=== PATIENT | female | born 1970 ===

== ENCOUNTER 2021-02-27 18:18 | Emergency (ER) | payer OTHER, SELFPAY ==
--- NOTE | ~2021-02-27 | XR_ITS ---
EXAMINATION: XR LUMBOSACRAL SPINE CLINICAL INFORMATION: Lower back pain and sciatica COMPARISON: CT abdomen pelvis 11/17/2007 TECHNIQUE: Three views of the lumbosacral spine. FINDINGS: Mild degenerative changes are present in the lumbar spine with some mild endplate osteophytes. There is mild disc space narrowing at L3-L4 and L5-S1. No bony destructive lesions are seen XR/XR lumbar spine 2-3V IMPRESSION: Mild degenerative changes without acute process.
[2021-02-27 18:40] VITALS: BP 124/65; PULSE 92; RESP 17; TEMP 36.6; O2SAT 100; BMI 44.9
[2021-02-27] MEDS: Ibuprofen 600 MG TABLET PO (19:25)
--- NOTE | 2021-02-27 19:25 | PC.NURSE ---
patient medicated with motrin for pain
[2021-02-27] MEDS: Lidocaine 4 % Patch ADH..PATCH 2 PATCH TRANSDERMA (20:49)
[2021-02-27] MEDS: Cyclobenzaprine HCl 10 MG TABLET PO (20:49)
[2021-02-27] MEDS: Ketorolac Tromethamine 60 MG/2 ML VIAL IM (20:56)
--- NOTE | 2021-02-27 21:01 | ED_ITS ---
HPI - General Adult General Chief complaint: General Medical Stated complaint: Leg pain Time Seen by Provider: 02/27/21 20:21 Source: patient Mode of arrival: ambulatory Limitations: no limitations History of Present Illness HPI narrative: 51-year-old female with chronic back pain presents with lower back pain and right leg sciatica. 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 She does not describe any trauma or any other injury. Denies symptoms indicating cauda equina, chest pain or pressure, palpitations, shortness of breath, abdominal pain, abdominal distention, dysu sunny, hematuria, edema, and any other concerning symptoms. Onset (ago): day(s) (Several) Location: back, right and lower extremity Severity: moderate Severity scale (1-10): 7 Quality: aching and constant Pain Consistency: constant Relieving factors: none Exacerbating factors: movement Associated symptoms: denies other symptoms Treatments prior to arrival: NSAID and heat therapy Related Data Previous Rx's Medication Instructions Recorded naproxen 500 mg tablet 500 mg PO Q12H PRN #60 tab 11/08/20 cyclobenzaprine 10 mg PO TID PRN #20 tab 02/27/21 lidocaine [Lidoderm] 2 patch TOPICAL DAILY PRN #30 ea 02/27/21 Allergies Allergy/AdvReac Type Severity Reaction Status Date / Time acetaminophen [From PERCOCET] Allergy Unknown RASH Unverified 08/05/20 15:13 oxycodone [Percocet] Allergy Unknown Verified 05/05/16 00:00 From PERCOCET Allergy Unknown RASH Uncoded 08/05/20 15:13 Review of Systems Review of Systems: Constitutional: No Fever, No Chills ENT/Mouth: No Ear Pain, No Hoarseness, No sore throat Eyes: No Eye Pain, No Swelling, No Redness, No Foreign Body Cardiovascular: No Chest Pain, No SOB Respiratory: No Cough, No Dyspnea Gastrointestinal: No Nausea, No Vomiting, No Diarrhea, No abdominal Pain Genitourinary: No Dysuria, No Hematuria Musculoskeletal: positive lower back pain with sciatica to the right leg, No Myalgias, No Joint Swelling Skin: No Skin lacerations, No rash Neuro: No Weakness, No Numbness, No Paresthesias, No Loss of Consciousness, No Dizziness, No Headache Psych: No Anxiety/Panic, No Depression Heme/Lymph: no easy bruising, no Lymphadenopathy Endocrine: No Polyuria, No Polydipsia Yes all other systems are reviewed and are negative [facility] Past Medical History Attestation statement: The following information was validated with the patient. Source: old records reviewed Medical History No active medical problems Social History Social History Smoking Status: Current every day smoker Use of substances other than those prescribed or required for medical reasons: No Any prior treatment program specific to substance use: No Advance Directives: No Advance Directives Information Provided: No Physical Exam Vital Signs: Vital Signs: Last Vital Signs Temp 97.9 F 02/27/21 18:40 Pulse 92 02/27/21 18:40 Resp 17 02/27/21 18:40 BP 124/65 02/27/21 18:40 Pulse Ox 100 02/27/21 18:40 Body Mass Index 44.9 Appearance: Alert. Oriented X3. No acute distress. Eyes: Pupils equal, round and reactive to light. ENT: Pharynx normal. Neck: Normal inspection. Neck supple. CVS: Normal heart rate and rhythm. Pulses normal. Respiratory: No respiratory distress. Breath sounds normal. Abdomen: Soft and nontender. Skin: Skin warm and dry. Normal skin color. Normal skin turgor. Extremities: No lower extremity edema. Neuro: No motor deficit. No sensory deficit. 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 Plan of care is for x-ray, Lidoderm patches, Toradol injection and cyclobenzaprine. X-rays negative for acute findings requiring emergent intervention. Shows chronic degenerative disc changes. Plan of care is for patient to follow-up with pain management, physical will prescribe cyclobenzaprine and lidocaine patches. Patient verbalized understanding of and agrees plan of care discharge home. Medical Decision Making Differential Diagnosis Differential Diagnosis: Disc degeneration, lower back sprain, sciatica Medical Records Medical records reviewed: Yes I reviewed the patient's medical records. Imaging Data Lumbar x-ray: Attestation: I personally reviewed and interpreted this imaging study as follows: Radiologist's impression: EXAMINATION: XR LUMBOSACRAL SPINE CLINICAL INFORMATION: Lower back pain and sciatica COMPARISON: CT abdomen pelvis 11/17/2007 TECHNIQUE: Three views of the lumbosacral spine. FINDINGS: Mild degenerative changes are present in the lumbar spine with some mild endplate osteophytes. There is mild disc space narrowing at L3-L4 and L5-S1. No bony destructive lesions are seen XR/XR lumbar spine 2-3V IMPRESSION: Mild degenerative changes without acute process. Discharge Plan Discharge Clinical Impression: Lower back pain, Sciatica, Degenerative disc disease Patient Disposition: Home, Self-Care Instructions: Sciatica (ED), Lumbar Radiculopathy (ED), Back Pain (ED), Degenerative Disc Disease (ED) Additional Instructions: You were evaluated for lower back pain and sciatica. X-rays are negative for acute findings requiring emergent intervention. Please consider following up with Dr. Booth for pain management and physical therapy. Please use cyclobenzaprine as needed for muscle spasms. This medication will not take away your pain, it will prevent muscles from pulling on the spine and reduce spasming. This medication is a muscle relaxer, and can increase risk for drowsiness, falls, and delay coordination. Do not drive or operate machinery while taking this medication. Thank you for choosing this emergency department for evaluation. Please follow-up with primary care physician as needed. Return to the emergency department for any new, concerning, or worsening symptoms. Prescriptions: New cyclobenzaprine 10 mg tablet 10 mg PO TID PRN (Reason: muscle spasm) Qty: 20 RF: 0 lidocaine [Lidoderm] 5 % adhesive patch,medicated 2 patch topical DAILY PRN (Reason: pain) Qty: 30 RF: 0 No Action naproxen 500 mg tablet 500 mg PO Q12H PRN (Reason: for pain) Qty: 60 RF: 1 Referrals: Horace Booth MD [Physician] - 2 days Interventions: ED Discharge Assessment Last Done: 02/27/21 21:44 Discharge Date/Time: 02/27/21 21:45
== END 2021-02-27 21:45 | disposition home or self-care (01) ==
PROVIDERS: Emergency Provider Emergency Medicine
DX: M51.36 Other intervertebral disc degeneration, lumbar region (principal); M51.16 Intervertebral disc disorders with radiculopathy, lumbar region
CPT/HCPCS: 72100; 96372; 99284; J1885

== ENCOUNTER 2021-03-01 12:16 | Outpatient (REF) | payer OTHER, SELFPAY ==
[2021-03-01 13:33] LABS: MANUAL DIFF FLAG NO
[2021-03-01 13:42] LABS: Basophils Percent Auto 0.2 % (0-2); Eosinophils Absolute Auto 0.1 X10*3/uL (0.0-0.4); Eosinophils Percent Auto 1.2 % (0-4); Hematocrit 38.6 % (37-47); Hemoglobin 12.3 g/dl (12.0-16.0); Imm Gran Abs Auto 0.03 X10*3/uL (0.00-0.03); Imm Gran Pct Auto 0.3 % (0.0-0.4); Lymphocytes Absolute Auto 2.3 X10*3/uL (1.2-4.9); Lymphocytes Percent Auto 21.5 % (20-40); Mean Corpuscular HGB Conc 31.9 g/dl (31.0-35.0); Mean Corpuscular Hemoglobin 28.7 pg (27.0-33.0); Mean Platelet Volume 12.3 fL (9.4-12.3); Monocytes Absolute Auto 0.9 X10*3/uL (0.1-1.2); Monocytes Percent Auto 8.3 % (2-11); Neutrophils Absolute Auto 7.2 X10*3/uL (2.0-8.3); Neutrophils Percent Auto 68.5 % (45-73); Platelet Count 187 X10*3/uL (160-400); Red Blood Count 4.29 X10*6/uL (4.20-5.50); Red Cell Distribution Width 15.8 % (11.0-16.0); White Blood Count 10.6 X10*3/uL (4.8-10.8)
[2021-03-01 14:30] LABS: Erythrocyte Sedimentation Rate 40 MM/HR (0-20)
[2021-03-02 15:11] LABS: CRP High Sensitivity >10.0 mg/L
== END 2021-03-01 12:17 | disposition home or self-care (01) ==
LOC: HO.WFDLDS 12:16
PROVIDERS: PCP Family Medicine; Visit Provider Family Medicine
DX: M25.50 Pain in unspecified joint (principal)
CPT/HCPCS: 36415; 85025; 85652; 86141

== ENCOUNTER 2021-03-17 15:43 | Outpatient (RCR) | payer OTHER, SELFPAY ==
--- NOTE | 2021-03-17 18:46 | MHC.PT.EP ---
[facility] [place] Office [place] Office [place] Office [address] Vincent Purcell [address] [phone] F: [phone] F: [phone] F: [phone] F: [phone] Physical Therapy Plan of Care Date of Evaluation: Date of Surgery: Diagnosis: unspecified dorsalgia Assessment: Pt is a 51 y/o female referred to PT for dorsalgia who presents with signs and Sx consistent with lumbopelvic dysfunction resulting in decreased tolerance and ability to perform walking for long distances, standing and sitting tasks for long duration as well as lifting objects of weight, rolling in bed, and disturbed sleep secondary to decreased hip and core strength, decreased trunk ROM as well as, lumbar instability, decreased posture, increased tissue tension, pelvic asymmetry and pain. Pt is deemed an appropriate candidate to receive skilled PT in order to address her physical limitations to improve her functional ability. Frequency and Duration: The patient will be seen 2x/wk x 6 wks. Short Term Goals: In 1 week:; initiate HEP with evidence of compliance. In 3 weeks: improve baseline pain to < 6/10; initial 8/10. Vp Medical Goals: In 5 weeks: I with HEP. In 5 weeks: improve core strength to > good; initial good (-). In 5 weeks: Pt will reports < 1/4 night's sleep disturbed d/t lumbar pain. Treatment Plan: Modalities to reduce pain, spasms and effusion. Manual therapy to restore motion and function. Therapeutic exercise to improve strength and flexibility. Neuromuscular re-education for posture and balance. Therapeutic activities to return to functional activities of daily living. Electronically signed by: Christian Antoine PT. Please sign and return to therapist. Thank you for your referral.
--- NOTE | 2021-07-19 18:29 | MHC.PT.DC ---
[facility] [place] Office [place] Office [place] Office [address] Vincent Purcell 140 [facility] [phone] F: [phone] F: [phone] F: [phone] F: [phone] Physical Therapy Discharge Report Diagnosis: unspecified dorsalgia Date of Surgery: Date of Evaluation: 03/17/21 Date of Discharge: 07/19/21 Treatments to Date: 1 Cancellations to Date: 0 No Shows to Date: 2 Discharge Status: Visit Non-compliance Discharge Summary: Electronically signed by: Christian Antoine PT. Please sign and return to therapist. Thank you for your referral.
== END 2021-07-19 18:30 | disposition home or self-care (01) ==
LOC: HO.PTCHIC 15:43
PROVIDERS: PCP Family Medicine; Visit Provider Family Medicine
DX: M54.9 Dorsalgia, unspecified (principal)
CPT/HCPCS: 97110; 97161

== ENCOUNTER 2024-06-12 13:02 | Outpatient (REF) | payer OTHER, SELFPAY ==
--- NOTE | ~2024-06-12 | MM_ITS ---
EXAMINATION: MM SCREENING DIGITAL BREAST TOMOSYNTHESIS, BILATERAL CLINICAL INFORMATION: Screening. Asymptomatic. COMPARISON: Mammography: This study is compared with prior exams dating back to 2016. There are no interval mammograms. TECHNIQUE: Digital breast tomosynthesis is performed in both the craniocaudal and mediolateral oblique views along with computer-aided detection (CAD). Synthesized 2D images are generated from the tomosynthesis. FINDINGS: The breasts are almost entirely fatty (ACR BI-RADS breast composition Category a). There are no significant masses, abnormal calcifications, or other abnormalities. MM/MM tomosynthesis screening BI IMPRESSION: No mammographic evidence of malignancy. ASSESSMENT: BI-RADS BI-RADS 1 - Negative RECOMMENDATION: Routine annual mammography screening. 1 year F/U This examination should not preclude the clinical evaluation of a suspicious palpable abnormality. This patient's information was entered into a reminder system with a target due date for their next mammogram.
== END 2024-06-12 13:03 | disposition home or self-care (01) ==
LOC: HO.MAMMO 13:02
PROVIDERS: PCP Family Medicine; Visit Provider Nurse Practitioner Family
DX: Z12.31 Encounter for screening mammogram for malignant neoplasm of breast (principal)
CPT/HCPCS: 77063; 77067

== ENCOUNTER → 2024-06-12 14:00 | Outpatient (BNV) | payer OTHER, SELFPAY | PROVIDERS: PCP Family Medicine; Visit Provider Radiology Diagnostic Radiology | DX: Z12.31 Encounter for screening mammogram for malignant neoplasm of breast (principal) | CPT/HCPCS: 77063; 77067 ==

== ENCOUNTER 2024-07-24 08:47 | Outpatient (AMB) | payer OTHER, SELFPAY ==
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
[2024-07-24 09:07] VITALS: BP 119/75; PULSE 74; RESP 16; TEMP 2.5; TEMP 36.5; O2SAT 95; BMI 39.4
== END 2024-07-24 10:04 | disposition home or self-care (01) ==
PROVIDERS: PCP Family Medicine; Visit Provider Family Medicine
DX: G43.909 Migraine, unspecified, not intractable, without status migrainosus (principal); M54.12 Radiculopathy, cervical region; R06.02 Shortness of breath; Z12.11 Encounter for screening for malignant neoplasm of colon; Z12.31 Encounter for screening mammogram for malignant neoplasm of breast
CPT/HCPCS: 99214

== ENCOUNTER 2024-07-25 10:44 | Outpatient (REF) | payer OTHER, SELFPAY ==
[2024-07-25 14:13] LABS: MANUAL DIFF FLAG NO
[2024-07-25 14:25] LABS: Appearance Urine Clear; Color Urine Dark Yellow; Glucose Urine UA Negative (Negative); Leukocyte Esterase Urine Negative (Negative); Nitrite Urine Negative (Negative); Specific Gravity - Urine 1.025 (1.005-1.025); Urine Blood Negative (Negative); Urine Ketones Trace mg/dL (Negative); Urine Protein Negative (Neg-Trace)
[2024-07-25 14:27] LABS: Basophils Percent Auto 0.2 % (0-2); Eosinophils Absolute Auto 0.2 X10*3/uL (0.0-0.4); Eosinophils Percent Auto 2.1 % (0-4); Hematocrit 42.6 % (37.0-47.0); Imm Gran Abs Auto 0.03 X10*3/uL (0.00-0.03); Imm Gran Pct Auto 0.3 % (0.0-0.4); Lymphocytes Absolute Auto 2.4 X10*3/uL (1.2-4.9); Lymphocytes Percent Auto 25.1 % (20-40); Mean Corpuscular HGB Conc 32.9 g/dl (31.0-35.0); Mean Corpuscular Hemoglobin 30.6 pg (27.0-33.0); Mean Platelet Volume 11.5 fL (9.4-12.3); Monocytes Percent Auto 10.3 % (2-11); Platelet Count 165 X10*3/uL (160-400); Red Blood Count 4.58 X10*6/uL (4.20-5.50); Red Cell Distribution Width 13.8 % (11.0-16.0); White Blood Count 9.7 X10*3/uL (4.8-10.8)
[2024-07-25 14:57] LABS: Creatinine Urine 173.59 mg/dL; Microalbum/Creatinine Ratio Ur 7.4 ug/mg cr (<30)
[2024-07-25 15:10] LABS: Alanine Aminotransferase 11 U/L (0-31); Albumin Level 4.3 g/dL (3.5-5.0); Alkaline Phosphatase 87 U/L (39-117); Anion Gap 11 (12-20); Aspartate Amino Transferase 12 U/L (5-31); Bilirubin Total 0.4 mg/dL (0.0-1.0); Blood Urea Nitrogen 12 mg/dL (9-16); Calcium 9.4 mg/dL (8.4-10.2); Carbon Dioxide 27 mmol/L (22-29); Chloride 107 mmol/L (96-108); Cholesterol 170 mg/dL (<200); Estimated Glomerular Filt Rate > 60; Glucose Fasting 76 mg/dL (60-99); HDL Cholesterol 36 mg/dL (>40); LDL Cholesterol Calculated 100 mg/dL (<100); Sodium 141 mmol/L (135-145); Total Protein 7.7 g/dL (6.5-8.0); Triglycerides 173 mg/dL (<150)
[2024-07-25 15:19] LABS: TSH reflex Free T4 0.76 uIU/mL (0.32-4.0)
== END 2024-07-25 10:45 | disposition home or self-care (01) ==
LOC: HO.CHCLDS 10:44
PROVIDERS: Visit Provider Family Medicine
DX: Z00.00 Encounter for general adult medical examination without abnormal findings (principal); I10 Essential (primary) hypertension
CPT/HCPCS: 36415; 80053; 80061; 81003; 82043; 82570; 84443; 85025

== ENCOUNTER → 2024-08-18 09:25 | Outpatient (AMB) | payer OTHER, SELFPAY ==
--- NOTE | 2024-08-18 09:21 | A.OFFPC_ITS ---
Intake Visit Reasons: f/u CPE-labs via telemedicine Intake Note: lab review Allergies No Known Allergies Allergy (Verified 08/18/24 09:22) Medication List - Last Reconciled 08/18/24 by Tod Mendez MD olopatadine 0.7% 1 drp ophthalmic (eye) DAILY PRN 30 days Tobacco use date assessed: 07/24/24 Dental Screening Dental Screen Date: 07/24/24 HPI f/u CPE-labs via telemedicine HPI Details 54 y/o female presents [facility] f[facility] labs [facility]. Pt notes she has a cold today. Has been drinking plenty of fluids/rest. Labs drawn 07/25/24. Reviewed labs with pt. Triglycerides 173. TC 170. LDL 100. HDL low at 36. TSH 0.76. 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 Bairon Arana, April Negrete, Regulo Houston and colleagues, with an educational anthony from [employer] Review of Systems Const Denies chills, Denies fatigue, Denies fever(s), Denies headache(s) and Denies weakness ENT Denies dizziness and Denies headache(s) Card Denies dyspnea Resp Denies cough, Denies dyspnea, Denies wheezing and Denies other (shortness of breath) Musc Denies numbness and Denies tingling Neuro Denies dizziness, Denies headache(s), Denies numbness, Denies tingling and Denies weakness Psych Denies anxiety and Denies depression Endo Denies fatigue Aller/Immun Denies wheezing Physical exam (Primary Care) Tobacco/Smoking Status: Tobacco use Status Tobacco use date assessed 07/24/24 08/18/24 09:23 Patient Tobacco Use Status Current everyday Tobacco 08/18/24 09:23 e-Cigarette/Vaping Use Currently Using 08/18/24 09:23 Thrive Assessment: Date of Thrive Assessment Date Thrive assessed 07/24/24 08/18/24 09:23 Telehealth Telehealth Telehealth Platform: Telephone Location of provider rendering services: practice address Location of patient: address on file Patient Identification confirmed using: Name, : Yes Telehealth method: voice only Patient verbally consented to treatment: Yes Patient verbally consented to billing insurance company: Yes Patient informed of any privacy concerns related to visit: Yes Minutes spent on Phone/Video with Pt.: 4 Assessment and Plan Assessment & Plan (1) Low HDL (under 40): Code(s): E78.6 - Lipoprotein deficiency Plan: Encouraged?diet?lower?in?saturated?fats?and?cholesterol Encouraged?exercise We?can?recheck?in?a?few?months. (2) Elevated LDL cholesterol level: Code(s): E78.00 - Pure hypercholesterolemia, unspecified Plan: As?above (3) Right sided sciatica: Code(s): M54.31 - Sciatica, right side Plan: Musculoskeletal?pain?at?right?and?left?hips?as?well?as?radiating?from?knee?to?ri ght?hip. Referred?to?physical?therapy. (4) Cervical radiculopathy: Code(s): M54.12 - Radiculopathy, cervical region Plan: As?above,?referred?to?physical?therapy Orders: Orders PT Evaluation and Treatment Today M25.559 - Pain in unspecified hip, M25.561 - Pain in right knee, M54.12 - Radiculopathy, cervical region Coding Level of Care Code Tele Est Pt Level 2 (68955) Diagnoses Low HDL (under 40) E78.6 Elevated LDL cholesterol level E78.00 Right sided sciatica M54.31 Cervical radiculopathy M54.12
== END ==
LOC: HO.HMCFM 09:25
PROVIDERS: PCP Family Medicine; Visit Provider Family Medicine
DX: E78.6 Lipoprotein deficiency (principal); E78.00 Pure hypercholesterolemia, unspecified; M54.31 Sciatica, right side; M54.12 Radiculopathy, cervical region

== ENCOUNTER → 2024-08-18 09:25 | Outpatient (BNVA) | payer OTHER, SELFPAY | PROVIDERS: PCP Family Medicine; Visit Provider Family Medicine ==

== ENCOUNTER → 2024-09-09 15:36 | Outpatient (BNVA) | payer SELFPAY | PROVIDERS: PCP Family Medicine ==

== ENCOUNTER → 2024-09-10 16:20 | Outpatient (BNVA) | payer SELFPAY | PROVIDERS: PCP Family Medicine | DX: R76.11 Nonspecific reaction to tuberculin skin test without active tuberculosis (principal) ==

== ENCOUNTER 2024-09-12 15:34 | Outpatient (REF) | payer OTHER, SELFPAY ==
--- NOTE | ~2024-09-12 | XR_ITS ---
EXAMINATION: XR CHEST CLINICAL INFORMATION: +PPD. COMPARISON: Chest radiograph dated 09/05/2019. TECHNIQUE: 2 views of the chest were obtained. FINDINGS: The lungs are clear. The cardiomediastinal silhouette is normal in size. There is no pleural effusion or pneumothorax. No acute osseous abnormality. XR/XR chest 2V IMPRESSION: No acute cardiopulmonary findings. Electronically signed by: Jaime Ott MD 09/12/2024 04:53 PM EDT
== END 2024-09-12 15:35 | disposition home or self-care (01) ==
LOC: HO.XRAY 15:34
PROVIDERS: PCP Family Medicine; Visit Provider Physician Assistant
DX: R76.11 Nonspecific reaction to tuberculin skin test without active tuberculosis (principal)
CPT/HCPCS: 71045; 71046

== ENCOUNTER 2024-09-22 14:00 | Outpatient (RCR) | payer OTHER, SELFPAY ==
--- NOTE | 2024-09-19 15:18 | MHC.PT.EP ---
[facility] [place] [facility] [place] [facility] [place] Office [address] [phone] F: [phone] F: [phone] F: [phone] F: [phone] Physical Therapy Plan of Care Date of Evaluation: 09/19/24 Date of Surgery: Diagnosis: LBP Assessment: Pt is a 54 y/o female referred to PT for eval and treat of hip pain which is resulting in decreased tolerance for sitting, walking, standing, negotiating stairs, as well as rolling in bed secondary to decreased B hip and core strength, decreased trunk ROM, TTP of R lower back/ SIJ, as well as pelvic asymmetry and pain. Pt is deemed an appropriate candidate to receive skilled PT services to address their physical impairments in order to improve their functional ability. Frequency and Duration: The patient will be seen 2 x/ wk x 4 wks. Short Term Goals: initiate home program. Improve baseline pain to 0-7/10; initial 0-10. Intermediate Goals: I with home program. Pt will improve LEFI by at least 9 points. Pt will be able to tolerate sitting for 1 hour with at most moderate difficulty; initial: unable or with extreme difficulty. Pt will be able to walk 2 blocks with at most a little bit of difficulty; initial: quite a bit of difficulty. Treatment Plan: Modalities to reduce pain, spasms and effusion. Manual therapy to restore motion and function. Therapeutic exercise to improve strength and flexibility. Neuromuscular re-education for posture and balance. Therapeutic activities to return to functional activities of daily living. Electronically signed by: Christian Antoine PT Please sign and return to therapist. Thank you for your referral.
--- NOTE | 2024-10-08 15:48 | MHC.PT.DC ---
[facility] [place] [facility] [place] [facility] [place] [facility] [address] [phone] F: [phone] F: [phone] F: [phone] F: [phone] Physical Therapy Discharge Report Diagnosis: LBP Date of Surgery: Date of Evaluation: 09/19/24 Date of Discharge: 10/08/24 Treatments to Date: 2 Cancellations to Date: 3 No Shows to Date: 4 Discharge Status: Visit Non-compliance Discharge Summary: . Electronically signed by: Christian Antoine PT . Please sign and return to therapist. Thank you for your referral.
== END 2024-10-08 15:49 | disposition home or self-care (01) ==
LOC: HO.PT 14:00
PROVIDERS: PCP Family Medicine; Visit Provider Family Medicine
DX: M54.12 Radiculopathy, cervical region (principal); M25.551 Pain in right hip; M25.561 Pain in right knee
CPT/HCPCS: 97110; 97140; 97161